=== PATIENT | male | born 1955 | race Caucasian/White ===

== ENCOUNTER 2024-12-23 12:02 | Outpatient (CLI) | payer MEDICARE, BC ==
[~2024-12-23 12:02] MED LIST: ALLO300T8 PO; DONE10TA44 PO; MEMA10TA22 PO; METF-436 PO; QUET-1 PO; ROSU10TA72 PO; SACC250C PO; SYN0.088T PO; VALS1TAB73 PO
[2024-12-23 12:49] LABS: D-DIMER 0.55 MG/L FEU (0-0.50)
[2024-12-23 12:52] LABS: ANION GAP 4 (8-16); BLOOD UREA NITROGEN 26 MG/DL (7-18); BUN/CREATININE RATIO 29.2 (10.0-20.0); CALCIUM 9.1 MG/DL (8.5-10.1); CHLORIDE 107 MMOL/L (99-107); CREATININE 0.89 MG/DL (0.60-1.10); GLUCOSE 87 MG/DL (70-104); POTASSIUM 4.1 MMOL/L (3.5-5.1); SODIUM 141 MMOL/L (135-145); TOTAL CARBON DIOXIDE 29.8 MMOL/L (24-32); eGFR 85 ML/MIN
[2024-12-23 12:53] LABS: ALANINE AMINOTRANSFERASE 22 U/L (12-78); ALBUMIN 3.6 G/DL (3.4-5.0); ALBUMIN/GLOBULIN RATIO 1.2 (1.1-1.5); ALKALINE PHOSPHATASE 98 IU/L (46-116); ASPARTATE AMINO TRANSFERASE 18 U/L (10-37); BILIRUBIN,TOTAL 0.4 MG/DL (0.1-1.0); TOTAL PROTEIN 6.7 G/DL (6.4-8.2)
[2024-12-23 13:49] LABS: BILIRUBIN,URINE NEGATIVE (Neg); CLARITY,URINE CLEAR (Clear); COLOR,URINE YELLOW (Yellow); GLUCOSE, URINE NEGATIVE (Neg); KETONES,URINE NEGATIVE (Neg); LEUKOCYTE ESTERASE ,URINE TRACE (Neg); NITRITES, URINE NEGATIVE (Neg); OCCULT BLOOD,URINE SMALL (Neg); PROTEIN,URINE NEGATIVE (Neg)
[2024-12-23 13:56] LABS: UA COLLECTION TYPE NON-SPECIFIED
[2024-12-23 14:07] LABS: BACTERIA,URINE 1+ /HPF (Neg)
[2024-12-23 14:09] LABS: RENAL CELLS, URINE FEW /HPF
[2024-12-23 14:11] LABS: SQUAMOUS EPITHELIAL CELL,UR FEW /LPF (FEW)
--- NOTE | 2024-12-23 15:11 | VASCULAR REPORT ---
Bilateral lower extremity venous duplex Clinical History: Edema Comparison: None Technique: Duplex Doppler evaluation of the deep venous systems of both lower extremities from the common femora l veins to the popliteal veins including color Doppler and spectral/pulsed waveform analysis was perf ormed. Findings: RIGHT SIDE: The common femoral vein demonstrates appropriate compressibility and waveform variability. There is compressibility/patency of the great saphenous vein at the proximal thigh. The femoral vein demonstrates appropriate compressibility and waveform variability. The deep femoral vein demonstrates appropriate compressibility and waveform variability. The popliteal vein demonstrates appropriate compressibility and waveform variability. Acute nonocclusive thrombus within the 2 right peroneal veins. LEFT SIDE: The common femoral vein demonstrates appropriate compressibility and waveform variability. There is compressibility/patency of the great saphenous vein at the proximal thigh. The femoral vein demonstrates appropriate compressibility and waveform variability. The deep femoral vein demonstrates appropriate compressibility and waveform variability. The popliteal vein demonstrates appropriate compressibility and waveform variability. Acute nonocclusive thrombus in the left peroneal vein. Impression: Thrombus in the bilateral peroneal veins. 3 cm right inguinal lymph node.
[2024-12-23] MEDS ORDERED: ESCI20TA PO (17:47)
[2024-12-23] MEDS ORDERED: QUET50TA24 PO (17:47)
[2024-12-23] MEDS ORDERED: QUET50TA PO (22:07)
[2024-12-24] MEDS ORDERED: BREX1TAB PO ×2 (14:16→14:49)
== END 2024-12-23 23:59 | disposition home or self-care (01) ==
LOC: VAS 12:02
PROVIDERS: ATTEND Family Medicine
DX: I82.453 Acute embolism and thrombosis of peroneal vein, bilateral (principal); R60.0 Localized edema
CPT/HCPCS: 36415; 80053; 81001; 85379; 93970